=== PATIENT | male | born 1970 | race Caucasian/White ===

== ENCOUNTER 2016-11-14 01:29 | Emergency (ER) | payer MEDICAID, OTHER ==
[2016-11-14 01:30] VITALS: O2SAT 98
[2016-11-14] MEDS ORDERED: MORPHINE SULFATE 8 MG/ML INJ ONE (01:39)
[2016-11-14] MEDS ORDERED: MORPHINE SULFATE 4 MG/ML INJ IV ONE (01:40)
[2016-11-14] MEDS ORDERED: ONDANSETRON HCL 4 MG/2 ML VIAL IV ONE (01:40)
[2016-11-14] MEDS ORDERED: ceFAZolin 2 GM PREMIX 50 ML ONE (01:40)
[2016-11-14] MEDS ORDERED: DIPHTH/TETANUS/ACEL PERTUSSIS (BOOSTER) 0.5 ML VIAL/PFS IM ONE ×2 (01:40)
[2016-11-14] MEDS ORDERED: ONDANSETRON HCL 4 MG/2 ML VIAL ONE (01:40)
[2016-11-14] MEDS ORDERED: GENTAMICIN/SOD CHL 80 MG/100 ML IV SCH (01:40)
[2016-11-14] MEDS ORDERED: ceFAZolin 2 GM PREMIX 50 ML IV STA (01:40)
[2016-11-14] MEDS ORDERED: GENTAMICIN 80 MG PREMIX 100 ML ONE (01:43)
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
[2016-11-14 01:53] LABS: AUTOMATED NEUTROPHIL # 6.3 TH/MM3 (1.8-7.7); BASOPHIL # 0.1 TH/MM3 (0-0.2); BASOPHIL % 0.9 % (0.0-2.0); EOSINOPHIL # 0.4 TH/MM3 (0-0.4); EOSINOPHIL % 4.5 % (0.0-4.0); HEMATOCRIT 35.5 % (39.0-51.0); HEMO FLAGS DIFF FINAL; I-STAT POTASSIUM 5.7 MMOL/L (3.5-4.9); I-STAT SODIUM 140 MMOL/L (138-146); LYMPH % 19.6 % (9.0-44.0); LYMPHOCYTE # 1.8 TH/MM3 (1.0-4.8); MEAN CELL VOLUME 91.8 FL (80.0-100.0); MEAN CORPUSCULAR HGB CONC 33.8 % (32.0-36.0); MONO % 7.5 % (0.0-8.0); NEUT % 67.5 % (16.0-70.0); PLATELET COUNT 229 TH/MM3 (150-450); RED BLOOD COUNT 3.86 MIL/MM3 (4.50-5.90); RED CELL DISTRIBUTION WIDTH 15.1 % (11.6-17.2); WHITE BLOOD COUNT 9.4 TH/MM3 (4.0-11.0)
[2016-11-14] MEDS ORDERED: IOHEXOL 350 MG/ML 10 ML VIAL (for RAD DIAG) IV ONE (01:58)
[2016-11-14 02:04] LABS: APTT (PATIENT) 30.9 SEC (24.3-30.1); PROTHROMBIN TIME - PATIENT 11.3 SEC (9.8-11.6)
[2016-11-14 02:15] VITALS: BP 146/84; PULSE 103; RESP 18; O2SAT 97
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
[2016-11-14] MEDS ORDERED: CEPH-460 PO ×2 (02:58→05:26)
[2016-11-14] MEDS ORDERED: NORC5TAB PO ×2 (02:58→05:26)
[2016-11-14] MEDS ORDERED: MORPHINE SULFATE 4 MG/ML INJ IV PUSH ONE (03:45)
[2016-11-14 03:49] VITALS: BP 156/93; PULSE 100; RESP 20; O2SAT 100
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
== END 2016-11-14 10:37 | disposition home or self-care (01) ==
LOC: EDBD 01:29 → NEPI 01:29 → NEPD 10:37
DX: S71.102A Unspecified open wound, left thigh, initial encounter (principal); S61.402A Unspecified open wound of left hand, initial encounter; F17.210 Nicotine dependence, cigarettes, uncomplicated; W34.00XA Accidental discharge from unspecified firearms or gun, initial encounter
CPT/HCPCS: 12002; 73120; 73552; 75635; 80307; 82435; 82565; 82947; 84132; 84295; 84520; 85025; 85610; 85730; 86850; 86900; 86901; 90471; 90715; 96374; 96375; 96376; 99285; 99291; J2270; Q9967; G0390; J0690; J1580; J2405